=== PATIENT | female | born 1980 | race Caucasian/White ===

== ENCOUNTER 2017-01-21 18:58 | Emergency (ER) | payer BC ==
[~2017-01-21] VITALS: Ht 162.6 cm; Wt 54.0 kg
[2017-01-21 19:03] VITALS: Ht 162.6 cm; Wt 54.0 kg
[2017-01-21] MEDS ORDERED: SOD CHLORIDE 0.9% 500 ML IV STA (21:07)
[2017-01-21] MEDS ORDERED: METOCLOPRAMIDE 10 MG INJ IV ONE (21:30)
[2017-01-21] MEDS ORDERED: DIPHENHYDRAMINE 50 MG INJ IV ONE (21:30)
[2017-01-21] MEDS ORDERED: ACET325T33 PO (21:37)
--- NOTE | 2017-01-21 21:59 | ERD ---
ER Documentation Chief Complaint Date/Time DATE: 01/21/17 TIME: 21:59 Chief Complaint pt bib family with c/o headache starting 2 hrs ago, hx same, HPI This is a 36-year-old female presenting to the emergency department complaining of a left-sided moderate headache that started at 4 PM today. Patient states that she has had a history of headaches before. She states that the past couple days she has been taking Flagyl and doxycycline for a infection her primary care physician. Patient denies any nausea. She admits to having photophobia. She denies any neuro deficits. She states she took 600 mg of ibuprofen a couple hours prior to being seen without much relief. ROS All systems reviewed and are negative except as per history of present illness. Medications Home Meds Active Scripts Acetaminophen* (Tylenol*) 325 Mg Tablet, 2 TAB PO Q6 Y for PAIN AND OR ELEVATED TEMP, #30 TAB Prov:ANJU ALICIA PA-C 01/21/17 Allergies Allergies: Coded Allergies: No Known Allergy (Unverified , 03/04/15) PMhx/Soc History of Surgery: Yes (APPENDECTOMY) Anesthesia Reaction: No Hx Neurological Disorder: No Hx Respiratory Disorders: No Hx Cardiac Disorders: No Hx Psychiatric Problems: No Hx Miscellaneous Medical Probl: No Hx Alcohol Use: No Hx Substance Use: No Hx Tobacco Use: No Smoking Status: Never smoker Physical Exam Vitals Vital Signs Date Time Temp Pulse Resp B/P Pulse Ox O2 Delivery O2 Flow Rate FiO2 01/21/17 19:03 98.2 102 20 155/80 100 Physical Exam GENERAL: well-developed/well-nourished, in no apparent distress, non-toxic appearing HENT: NC/AT, bilateral tympanic membrane is normal with good cone of light, nares patent, oropharynx clear without exudates EYES: Conjunctiva normal, PERRLA, EOMI, no nystagmus noted NECK: Supple, no lymphadenopathy PULM: CTA bilaterally, no rales, rhonchi, or wheezing heard CV: Normal S1S2, RRR, good capillary refill GI: Soft, non-distended, normal bowel sounds, non-tender BACK: No midline tenderness, no masses, No CVAT EXT: No clubbing, cyanosis, or edema NEURO: Alert and orientated to person, place, and time. CN II-IIX intact. Gait and coordination were normal. 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 and within normal limits SKIN: Intact, normal turgor PSYCH: Normal mood and mentation, patient denied SI Results 24 hrs Current Medications Medications (Trade) Dose Ordered Sig/Gayle Route PRN Reason Start Time Stop Time Status Last Admin Dose Admin Diphenhydramine HCl (Benadryl) 50 mg ONCE ONCE IV 01/21/17 21:30 01/21/17 21:31 DC 01/21/17 21:20 Metoclopramide HCl 10 mg 10 mg ONCE ONCE IV 01/21/17 21:30 01/21/17 21:31 DC 01/21/17 21:21 Sodium Chloride (NS) 500 ml @ 500 mls/hr Q1H STAT IV 01/21/17 21:07 01/21/17 22:06 01/21/17 21:20 Procedures/MDM MDM: This is a 36-year-old female presents with headache. My differential diagnoses include tension, migraine, and cluster headache, overuse medication headache, subarachnoid hemorrhage, meningitis, stroke. Pain relief Benadryl and Reglan was given in the ED with some improvement. Neurology exam was normal and I don't recommend a CT scan at this time DISPOSITION: hemodynamically stable and neurovascularly intact. Prescriptions were given. Discussed to follow up with a primary care physician in the next couple days. Return to the ER if condition worsens or not improving as expected. Patient agreed and understood this plan. Departure Diagnosis: Primary Impression: Headache Condition: Stable Patient Instructions: Self-Care for Headaches Referrals: PAGE GOODMAN MD (PCP) Additional Instructions: FOLLOW UP WITH YOUR PRIMARY CARE PHYSICIAN TOMORROW.Return to this facility if you are not improving as expected. Take all medicines as directed. Return to this facility if you are not improving as expected. ANJU ALICIA PA-C Jan 21, 2017 21:59
== END 2017-01-21 22:20 | disposition home or self-care (01) ==
LOC: FTE 18:58
DX: R51 Headache (principal)
CPT/HCPCS: 96374; 96375; J1200; J2765; J7040; Z7502